=== PATIENT | male | born 1965 ===

== ENCOUNTER 2022-10-30 21:23 | Observation (INO) | payer BC, SELFPAY ==
--- NOTE | ~2022-10-30 | CT_ITS ---
EXAMINATION: CT abdomen pelvis w con DATE: 10/31/2022 01:29 INDICATION: Right abdominal pain. TECHNIQUE: Computed tomography (CT) of the abdomen and pelvis was performed with 100 mL Omnipaque 350 intravenous contrast. Automated exposure control and iterative reconstruction technique were employe d. The dose-length product was 239.56 mGy-cm. COMPARISON: CT abdomen and pelvis 02/11/2011 FINDINGS: The visualized portions of the lung bases demonstrate mild atelectasis in the right. No ple ural effusion. The heart size is normal. No pericardial effusion. The liver is normal. There are gall stones in the gallbladder, which is normal in size. Gallbladder wall thickening is noted. There is a 5 mm hypodense mass in the spleen, likely a cyst or granulomatous disease. The pancreas and adrenal g lands are normal. There are cysts in the kidneys measuring up to 11 mm on the right. Mild aortic athe rosclerosis is noted. There are no dilated loops of bowel. The appendix is not visualized. There are no pathologically enlarged lymph nodes. There is no free intraperitoneal fluid. There is an intramedu llary kaylynn in right femur. There is mild lumbar spondylosis. IMPRESSION: 1. Cholelithiasis. Gallbladder wall thickening may be secondary to acute or chronic cholecystitis. Reviewed, dictated and finalized at location E. IMPRESSION: 1. Cholelithiasis. Gallbladder wall thickening may be secondary to acute or chr onic cholecystitis.
[2022-10-30 21:39] VITALS: BP 177/104; PULSE 68; RESP 16; TEMP 36.3; O2SAT 100
--- NOTE | 2022-10-30 21:54 | ECG_ITS ---
Measurements Intervals [place] Rate: 56 P: 74 DC: 152 QRS: 55 QRSD: 73 T: 50 QT: 389 QTc: 377 Interpretive Statements SINUS BRADYCARDIA CONSIDER ANTERIOR INFARCT, AGE INDETERMINATE BASELINE ARTIFACT- I, AVL ABNORMAL ECG NO PREVIOUS ECG AVAILABLE FOR COMPARISON Electronically Signed On 10-31-2022 7:02:57 CDT by Hubert Gutierrez D.O.
[2022-10-30 21:55] LABS: Basophils Absolute Auto 0.1 K/mm3 (0.0-0.1); Eosinophils Absolute Auto 1.1 K/mm3 (0-0.3); Eosinophils Percent Auto 10.1 % (0-4.4); Hematocrit 51.1 % (42.0-52.0); Hemoglobin 17.3 g/dL (14.0-18.0); Immature Granulocyte Absolute 0.03 K/mm3 (0.00-0.031); Immature Granulocyte Percent A 0.3 % (0-0.5); Lymphocytes Absolute Auto 3.93 K/mm3 (0.9-3.2); Lymphocytes Percent Auto 35.9 % (18.3-44.2); Mean Corpuscular HGB Conc 33.9 g/dl (32-36); Mean Corpuscular Hemoglobin 31.6 pg (26-34); Mean Corpuscular Volume 93.4 fl (80-100); Monocytes Percent Auto 9.5 % (2.6-8.5); Neutrophils Absolute Auto 4.7 K/mm3 (1.3-6.7); Neutrophils Percent Auto 43.2 % (45.5-73.1); Platelet Count Result 287 k/mm3 (150-375); Red Blood Count 5.47 M/mm3 (4.6-6.20); Red Cell Distribution Width 13.3 % (11.5-14.5); White Blood Count 10.9 K/mm3 (4.5-10.0)
--- NOTE | 2022-10-30 21:56 | PC.NURSE ---
pt comes to intake desk c/o chest pain. EKG ordered and completed.
[2022-10-30 22:09] LABS: Alanine Aminotransferase 38 U/L (6-50); Albumin Level 4.8 g/dL (3.5-5.1); Alkaline Phosphatase 73 U/L (38-126); Anion Gap 7 mmol/L (8-16); Aspartate Amino Transferase 40 U/L (17-59); Bilirubin,Total 0.4 mg/dL (0.2-1.3); Blood Urea Nitrogen 11 mg/dL (9-20); Calcium 9.8 mg/dL (8.4-10.2); Carbon Dioxide 28 mmol/L (22-30); Chloride 102 mmol/L (98-107); Estimated CRCL calculation 69 ml/min; Estimated Glomerular Filt Rate > 60; Glucose 109 mg/dL (65-110); Lipase 207 U/L (23-300); Sodium 137 mmol/L (137-145)
[2022-10-31] VITALS (21 sets, daily range): BP systolic 106–139; BP diastolic 62–92; PULSE 53–73; RESP 8–20; TEMP 36.1–37.1; O2SAT 93–100; BMI 26.5
[2022-10-31 00:38] LABS: Appearance Urine Clear (Clear); Bilirubin Urine Negative (Negative); Blood Urine Negative (Negative); Color Urine Yellow (Yellow); Glucose Urine UA Negative (Negative); Ketones Urine Negative (Negative); Leukocyte Esterase Ur Negative LEU/UL (Negative); Nitrate Urine Negative (Negative); Protein Urine Negative (Negative); Specific Grav Ur 1.008 (1.001-1.035); Urobilinogen Urine 0.2 mg/dL (<2.0); pH Urine 5.5 (5.0-9.0)
[2022-10-31 00:58] LABS: Add Urine Microscopic? NO
--- NOTE | 2022-10-31 02:12 | ED.GENADULT ---
HPI - General Adult General Chief complaint: Abdominal Pain Stated complaint: right abd pain Time Seen by Provider: 10/31/22 00:08 History of Present Illness HPI narrative: This is a 57-year-old male with history of hepatitis C and liver cirrhosis presenting with right-sided abdominal pain. Patient says he has been having pain on and off for 6 weeks. Is a pressure in the right upper quadrant that is nonradiating 10 out 10 intensity and comes and goes. He has never experienced pain like this before the last 6 weeks there no exacerbating alleviating factors. He reports fevers, nausea and vomiting.. He chest pain/ shortness of breath urinary symptoms diarrhea or constipation Related Data Home Medications Medication Instructions Recorded Confirmed bisacodyl 5 mg tablet,delayed 5 mg PO ONCE 12/29/19 release oxycodone-acetaminophen 5 mg-325 1 tablet PO Q6H PRN 12/29/19 mg tablet polyethylene glycol 3350 17 gram 17 gm PO DAILY 12/29/19 oral powder packet Allergies Allergy/AdvReac Type Severity Reaction Status Date / Time No Known Allergies Allergy Unknown Verified 10/30/22 21:24 [facility] Past Medical History Medical History Asthma Cigarette nicotine dependence, uncomplicated Fracture of femur following insertion of orthopedic implant, joint prosthesis, or bone plate, right leg Sleep apnea, unspecified Viral hepatitis C without hepatic coma Surgical History Surgical History History of appendectomy S/P operation on nasal septum Social History Social History Years smoked: 40 Smoking status: Current every day smoker Exam Narrative: APPEARANCE: No apparent distress. Head: atraumatic. EYES: EOMI, NOSE: Atraumatic NECK: Trachea midline RESPIRATORY: No increased rate of breathing, CTAB CARDIOVASCULAR: RRR, ABDOMINAL: Tenderness to palpation in the right upper quadrant. No CVA tenderness MUSCULOSKELETAL: No obvious deformities NEURO: Alert. Moving 4/4 extremities SKIN:: Warm, dry. Normal color PSYCHIATRIC: Normal affect Course Vital Signs Vital signs: Vital Signs Temperature 97.4 F L 10/30/22 21:39 Pulse Rate 68 10/30/22 21:39 Respiratory Rate 16 10/30/22 21:39 Blood Pressure 177/104 H 07/11/23 21:39 Pulse Oximetry 100 10/30/22 21:39 Oxygen Delivery Room Air 10/30/22 21:39 Temperature 97.4 F L 10/30/22 21:39 Pulse Rate 70 10/31/22 04:28 Respiratory Rate 15 10/31/22 04:28 Blood Pressure 117/87 10/31/22 04:28 Pulse Oximetry 99 10/31/22 04:28 Oxygen Delivery Room Air 10/30/22 21:39 Medical Decision Making [facility] Narrative Medical decision making narrative: -Presentation: 57-year-old male presenting with right upper quadrant abdominal pain. 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 -External Chart Review: None -Hx from independent Sources: daughter bedside -Independent interpretation of studies: CBC within normal limits. Metabolic panel unremarkable without significant elevations in liver enzymes. Urine negative for infection. Independent EKG interpretation: Rhythm [sinus], Rate [56], [place] -[normal], SC -[normal], QRS [narrow], QTC [normal], T waves -[negative for concerning inversions], ST Segments - [Negative for concerning elevations] Final interpretations: sinus bradycardia CT abdomen pelvis showed gallbladder wall thickening that is consistent with acute versus chronic cholecystitis. Point of care right upper quadrant ultrasound showed gallbladder sludge with gallbladder wall thickening and pericholecystic fluid. Positive sonogr
[2022-10-31] MEDS: HYDROmorphone HCL INJ (*CRX) 1 MG/ML SYR 0.5 MG IV PUSH (03:50)
[2022-10-31] MEDS: ACETAMINOPHEN 500 MG TABLET 1000 MG PO (03:51)
[2022-10-31] MEDS: PIPERACILLN/TAZ 3.375GM/NS50ML 3.375 GM/50 ML BAG IVPB ×3 (04:05→19:13)
[2022-10-31] MEDS: SODIUM CHLORIDE 0.9% IV 2,000 ML 999 ML IV CONT (04:05)
[2022-10-31 04:41] LABS: Prothrombin Time 13.7 Seconds (11.1-14.7)
--- NOTE | 2022-10-31 05:40 | PC.NURSE ---
Pts daughter, Crys's number [phone].
--- NOTE | 2022-10-31 09:49 | ADMGEN ---
This patient, James Vasquez, was admitted to Medical Room 260-01 at 0745. Patient/family oriented to hospital policies and general routines including ID bracelet, bed and alarms, visiting hours, pain management, procedures, bathroom and other care routines, personal items, smoking policy, room service/diet, and visiting hours. Information on how to activate the Rapid Response Team has been discussed. Patient/Family are encouraged to report perceived risks to care and to ask questions if they do not understand what they are told or what they should do.
--- NOTE | 2022-10-31 10:31 | PM.IMHP ---
H&P: HPI History of Present Illness Date/Time: 10/31/22 10:31 Chief Complaint: This is a 57-year-old male with history of? hepatitis C and liver cirrhosis presenting with right-sided abdominal pain.? Patient says he has been having pain on and off for 6 weeks.? Is a pressure in the right upper quadrant that is nonradiating 10 out 10 intensity and comes and goes.? He has never experienced pain like this before the last 6 weeks there no exacerbating alleviating factors. ? He reports fevers, nausea and vomiting.. He chest pain/ shortness of breath urinary symptoms diarrhea or constipation PMFSH Past Medical History Medical History Asthma Cigarette nicotine dependence, uncomplicated Fracture of femur following insertion of orthopedic implant, joint prosthesis, or bone plate, right leg Sleep apnea, unspecified Viral hepatitis C without hepatic coma Surgical History Surgical History History of appendectomy S/P operation on nasal septum Social History Social History Smoking packs per day: 2 Smoking cigarettes per day: 40.0 Years smoked: 40 Smoking pack-years: 80.00 Smoking status: Current every day smoker Tobacco type: cigarettes Alcohol intake: current Drinks per week: 2 Substance use: current Substance use type: marijuana Lack of Transportation: No Lack of Food: Never True Current Housing: I Have Housing Concerned About Future Housing: No Difficulty Paying Gas/Electric Bills: No Difficulty Paying for Meds: No Currently Unemployed: No Education: Grade School Difficulty w/ Childcare or Family Care: No Spiritual care concerns: No Meds Home Medications and Allergies Allergies Allergy/AdvReac Type Severity Reaction Status Date / Time No Known Allergies Allergy Unknown Verified 10/31/22 10:04 Vital Signs Vital Signs - 24 hr 10/30/22 21:39 10/31/22 04:28 10/31/22 05:27 Temperature 97.4 F L Pulse Rate 68 70 64 Respiratory Rate 16 15 15 Blood Pressure 177/104 H 117/87 106/62 Pulse Oximetry 100 99 96 Oxygen Delivery Room Air 10/31/22 04:28 10/31/22 05:16 10/31/22 07:01 Temperature Pulse Rate 67 62 60 Respiratory Rate 14 18 20 Blood Pressure 117/87 106/62 Pulse Oximetry 97 98 Oxygen Delivery 10/31/22 07:17 10/31/22 07:35 10/31/22 07:50 Temperature 97.6 F 97.4 F L 97.6 F Pulse Rate 57 L 56 L Respiratory Rate 18 18 Blood Pressure 116/76 116/65 Pulse Oximetry 97 Oxygen Delivery Exam Narrative: General: alert and oriented Psych: appropriate mood nad affect Eyes: PERRLA Neck: Trachea midline, no new lesions Skin: no changes Lungs: CTA Cardiac: Normal S1,S2, no MGR ABD: soft, nd, nt, nbs Ext: no new lesions, no cce Vasc: Pulses intact H&P: Results Labs Labs: Short CBC 10/30/22 Range/Units 21:45 WBC 10.9 H (4.5-10.0) K/mm3 Hgb 17.3 (14.0-18.0) g/dL Hct 51.1 (42.0-52.0) % Plt Count 287 (150-375) k/mm3 BMP 10/30/22 21:45 Sodium 137 Potassium 5.0 Chloride 102 Carbon Dioxide 28 BUN 11 Creatinine 0.80 Glucose 109 Calcium 9.8 Liver Function 10/30/22 Range/Units 21:45 Total Bilirubin 0.4 (0.2-1.3) mg/dL AST 40 (17-59) U/L ALT 38 (6-50) U/L Alkaline Phosphatase 73 (38-126) U/L Albumin 4.8 (3.5-5.1) g/dL Urine 10/31/22 Range/Units 00:32 Urine Color Yellow (Yellow) Urine Appearance Clear (Clear) Urine pH 5.5 (5.0-9.0) Ur Specific [place] 1.008 (1.001-1.035) Urine Protein Negative (Negative) mg/dL Urine Glucose (UA) Negative (Negative) mg/dL Assessment and Plan Assessment and plan (1) Cholecystitis: Code(s): K81.9 - Cholecystitis, unspecified Status: Acute Assessment and Plan: surgical consult (2) Hepatic cirrhosis: Code(s):
[2022-10-31] MEDS: LACTATED RINGERS 1,000 ML 125 ML IV CONT (12:04)
--- NOTE | 2022-10-31 13:17 | PM.CNGS ---
Assessment and Plan Assessment and plan (1) Cholecystitis: Code(s): K81.9 - Cholecystitis, unspecified Status: Acute Assessment and Plan: Have reviewed the CT and discussed the findings with the patient. He has evidence of acute cholecystitis with an elevated white blood count and CT findings gallbladder wall thickening cholelithiasis. Has a history hepatitis C, but his platelet level, coags, and liver enzymes all appear within normal limits. He has been admitted for further treatment and is still having pain. I recommended proceeding with laparoscopic cholecystectomy, possible open. I discussed the procedure, risks, benefits, and alternatives. Questions were answered. (2) Hepatitis C: Code(s): B19.20 - Unspecified viral hepatitis C without hepatic coma Status: Acute History of Present Illness Consult details Consult date: 10/31/22 Reason for consult: other (cholecystitis) Requesting physician: Quinton Palm MD Narrative: This is a 57-year-old man who presented to the emergency department this morning with right upper quadrant abdominal pain that has been intermittent over the past 6 weeks. He has about 2 episodes per week that her lasting about 6-8 hours at a time. He does not recall any particular foods cause this. In the emergency department he was noted to slightly elevated blood count in CT showed evidence acute cholecystitis. Was then placed on antibiotics admitted to the hospital for further treatment. He does have a history of hepatitis C and was told he may have early stages of cirrhosis. 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 Review of Systems Review of Systems: All systems reviewed & are unremarkable except as noted in HPI and below Constitutional: Constitutional: Denies chills and Denies fever(s) Eyes: Eyes: Denies change in vision ENT: Denies hearing loss, Denies neck pain and Denies sore throat Cardiovascular: Cardiovascular: Denies chest pain and Denies dyspnea Respiratory: Respiratory: Denies cough, Denies dyspnea and Denies wheezing Gastrointestinal: Gastrointestinal: Reports as per HPI Genitourinary: Genitourinary: Denies hematuria and Denies dysuria Musculoskeletal: Musculoskeletal: Denies arthralgias, Denies joint swelling and Denies neck pain Allergic/Immunologic: Allergic/Immunologic: Denies wheezing PMFSH Past Medical History Medical History Asthma Cigarette nicotine dependence, uncomplicated Fracture of femur following insertion of orthopedic implant, joint prosthesis, or bone plate, right leg Sleep apnea, unspecified Viral hepatitis C without hepatic coma Surgical History Surgical History History of appendectomy S/P operation on nasal septum Social History Social History Smoking packs per day: 2 Smoking cigarettes per day: 40.0 Years smoked: 40 Smoking pack-years: 80.00 Smoking status: Current every day smoker Tobacco type: cigarettes Alcohol intake: current Drinks per week: 2 Substance use: current Substance use type: marijuana Lack of Transportation: No Lack of Food: Never True Current Housing: I Have Housing Concerned About Future Housing: No Difficulty Paying Gas/Electric Bills: No Difficulty Paying for Meds: No Currently Unemployed: No Education: Grade School Difficulty w/ Childcare or Family Care: No Spiritual care concerns: No Meds Home Medications and Allergies Allergies Allergy/AdvReac Type Severity Reaction Status Date / Time No Known Allergies Allergy Unknown Verified 10/31/22 10:04 Vital Signs Vital Signs - 24 hr 10/30/22 21:39 10/31/22 04:28 10/31/22 05:27 Temperature 36.3 C L Pulse Rate 68 70 64 Respiratory Rate 16 15 15 Blood Pressure 177/104 H 117/
--- NOTE | 2022-10-31 13:21 | WPDHPUPDATE1 ---
History and Physical Update Update Date/Time: 10/31/22 13:21 History and Physical has been reviewed, including an updated exam of the patient. There are NO changes in the patient's condition. Risks, benefits, and alternatives have been discussed and questions answered. Patient agrees to proceed with procedure.
--- NOTE | 2022-10-31 13:51 | WPDANESEPPF ---
Anes - Initial Pre Proc Eval Procedure: Operation Date: 10/31/22 15:00 Proposed Procedures p Laparoscopic Cholecystectomy - Clement Chiu DO Date/Time: 10/31/22 13:51 Surgeon: Taina Galvan MD Pre Op Diagnosis: cholecystitis Patient Data Age: 57 Gender: M Height: 1.57 m Weight: 65.9 kg Last Vital Signs Temp 36.4 C 10/31/22 07:50 Pulse 56 L 10/31/22 07:50 Resp 18 10/31/22 07:50 BP 116/65 10/31/22 07:50 Pulse Ox 93 10/31/22 11:13 O2 Del Method Room Air 10/31/22 11:13 Allergies Allergy/AdvReac Type Severity Reaction Status Date / Time No Known Allergies Allergy Unknown Verified 10/31/22 10:04 Laboratory Tests 10/30/22 10/31/22 10/31/22 21:45 00:32 04:23 WBC 10.9 H K/mm3 (4.5-10.0) RBC 5.47 M/mm3 (4.6-6.20) Hgb 17.3 g/dL (14.0-18.0) Hct 51.1 % (42.0-52.0) MCV 93.4 fl (80-100) MCH 31.6 pg (26-34) MCHC 33.9 g/dl (32-36) RDW 13.3 % (11.5-14.5) Plt Count 287 k/mm3 (150-375) MPV 10.0 fl (7.4-10.4) Immature Gran % (Auto) 0.3 % (0-0.5) Neut % (Auto) 43.2 L % (45.5-73.1) Lymph % (Auto) 35.9 % (18.3-44.2) [place] % (Auto) 9.5 H % (2.6-8.5) Eos % (Auto) 10.1 H % (0-4.4) Baso % (Auto) 1.0 % (0.2-1.2) Lymph # (Auto) 3.93 H K/mm3 (0.9-3.2) [place] # (Auto) 1.0 H K/mm3 (0.1-0.6) Eos # (Auto) 1.1 H K/mm3 (0-0.3) Baso # (Auto) 0.1 K/mm3 (0.0-0.1) Abs Immat Gran (auto) 0.03 K/mm3 (0.00-0.031) Absolute Neuts (auto) 4.7 K/mm3 (1.3-6.7) Absolute Nucleated RBC 0.0 K/mm3 (0.0-0.012) Nucleated RBC % 0.0 % (0.0-0.2) PT 13.7 Seconds (11.1-14.7) INR 1.0 APTT 34.0 SECONDS (22.3-36.8) Sodium 137 mmol/L (137-145) Potassium 5.0 mmol/L (3.4-5.0) Chloride 102 mmol/L (98-107) Carbon Dioxide 28 mmol/L (22-30) Anion Gap 7 L mmol/L (8-16) BUN 11 mg/dL (9-20) Creatinine 0.80 mg/dL (0.7-1.3) Estim Creat Clear Calc 69 ml/min Estimated GFR > 60 (59 - ) Glucose 109 mg/dL (65-110) Calcium 9.8 mg/dL (8.4-10.2) Total Bilirubin 0.4 mg/dL (0.2-1.3) AST 40 U/L (17-59) ALT 38 U/L (6-50) Alkaline Phosphatase 73 U/L (38-126) Total Protein 8.0 g/dL (6.3-8.2) Albumin 4.8 g/dL (3.5-5.1) Lipase 207 U/L (23-300) Urine Color Yellow (Yellow) Urine Appearance Clear (Clear) Urine pH 5.5 (5.0-9.0) Ur Specific [place] 1.008 (1.001-1.035) Urine Protein Negative mg/dL (Negative) Urine Glucose (UA) Negative mg/dL (Negative) Urine Ketones Negative mg/dL (Negative) Ur Blood (Man) Negative (Negative) Urine Nitrate Negative (Negative) Urine Bilirubin Negative (Negative) Urine Urobilinogen 0.2 mg/dL (<2.0) Leukocyte Esterase Rfl Negative ROBER/UL (Negative) ECG: Date of Service: 07/11/23 Procedure(s): CA 12 lead EKG Accession Number(s): [id number] cc: ~ ? Measurements Intervals? [place]? Rate: ? 56 ? P:? 74 [place]: ? 152? QRS:? 55 QRSD: ? 73 ? T:? 50 QT: ? 389? QTc:? 377? Interpretive Statements SINUS BRADYCARDIA CONSIDER ANTERIOR INFARCT, AGE INDETERMINATE BASELINE ARTIFACT- I, AVL ABNORMAL ECG NO PREVIOUS ECG AVAILABLE FOR COMPARISON Electronically Signed On 10-31-2022 7:02:5
[2022-10-31] MEDS: LACTATED RINGERS 1,000 ML 30 ML IV CONT ×2 (14:17→16:35)
[2022-10-31] MEDS: BUPIVACAINE/EPINEPHRINE 0.5% 50 ML VIAL 30 ML INFILTRATE (15:46)
--- NOTE | 2022-10-31 16:21 | W.PM.PROC2 ---
Procedure Note - Detailed Date of Procedure 10/31/22 Pre-op Diagnosis Acute calculous cholecystitis Post-op Diagnosis Same Procedure Performed Laparoscopic cholecystectomy Surgeon Clement Chiu, DO Anesthesia General and Local (0.5% bupivacaine) Indications This is a 57-year-old man who presented to the emergency department with right upper quadrant pain that has been intermittent over the past 6 weeks. It became more severe last night and was continuing throughout the night. He presented to the ED this morning and workup showed evidence of acute calculous cholecystitis. He was started on Zosyn and admitted for further treatment. Discussions were made with the patient about treatment options and decision was made to proceed with laparoscopic cholecystectomy, possible open. Findings Laparoscopic cholecystectomy was performed. The patient's gallbladder wall was edematous and indurated. There appeared to be a medium-sized gallstones lodged at the neck of the gallbladder. There was inflammation surrounding this area and then the cystic duct appeared to taper to normal size. No other intra-abdominal abnormalities were noted. The gallbladder was removed and sent to the lab for pathology. Description of Procedure Procedure as well as risks, benefits, and alternatives were discussed with patient. Written consent was obtained and placed in chart prior to procedure. The patient was brought back to surgical suite. Patient was placed in supine position on operating table. Time-out was done to confirm patient and procedure. Patient was then intubated by the anesthesia department. Abdomen was prepped and draped in sterile fashion using chlorhexidine prep. 0.5% bupivacaine with epinephrine was infiltrated at each site of incision. An 11 millimeter vertical incision was made at the superior portion of the umbilicus using a 15 blade scalpel. Blunt dissection was carried down to the linea alba. The linea alba was then incised using a 15 blade scalpel. The peritoneum was then bluntly entered. An 11 millimeter trocar was inserted and carbon dioxide insufflation was used to create a pneumoperitoneum. The camera was inserted and the abdomen was inspected. The patient was placed in reverse Trendelenberg position and rotated slightly to the left. A 5 millimeter incision was made in the epigastric region, and a 5 millimeter trocar was inserted under direct visualization. Two 5 millimeter incisions were made in the right upper quadrant, and two 5 millimeter trocars were inserted under direct visualization. The gallbladder was identified and grasped at the fundus and retracted superiorly. It was then grasped at the infundibulum retracted laterally. Careful dissection around the neck of the gallbladder was performed using blunt dissection with a [place] grasper and hook electrocautery. The cystic duct was identified, and a window was created behind it. The cystic artery was also identified and a window was created behind it. The critical view of safety was identified, visualizing the cystic duct running directly into the neck of the gallbladder, and the cystic artery running directly into the wall of the gallbladder. A 5 millimeter clip air twist operator was then used to place 2 clips proximally and 1 clip distally on both the cystic duct and cystic artery. They were then both transected using endoscopic scissors. Once safely away from the angela hepatitis, the gallbladder was dissected free from the liver bed using hook electrocautery. Hemostasis was achieved along the way. The gallbladder was removed completely and then removed through the umbilical port. The liver bed was then inspected. Hemostasis appeared adequate, and our clips appeared secure. The area was gently irrigated with sterile saline. No other abnormalities were seen. The patient was flattened out in bed, and 1 final inspection was made around the abdominal cavity. The ports were then removed under direc
[2022-10-31] MEDS: HYDROmorphone HCL INJ (*CRX) 1 MG/ML SYR 0.25 MG IV PUSH ×2 (17:39→17:44)
[2022-10-31] MEDS: LACTATED RINGERS 1,000 ML 100 ML IV CONT (20:00)
[2022-11-01] MEDS: PIPERACILLN/TAZ 3.375GM/NS50ML 3.375 GM/50 ML BAG IVPB ×2 (00:27→05:32)
[2022-11-01 03:51] VITALS: BP 127/70; PULSE 18; RESP 18; TEMP 36.6; O2SAT 96
[2022-11-01 05:42] LABS: Basophils Absolute Auto 0.1 K/mm3 (0.0-0.1); Basophils Percent Auto 0.4 % (0.2-1.2); Eosinophils Percent Auto 0.3 % (0-4.4); Hemoglobin 14.9 g/dL (14.0-18.0); Immature Granulocyte Absolute 0.07 K/mm3 (0.00-0.031); Immature Granulocyte Percent A 0.6 % (0-0.5); Lymphocytes Absolute Auto 2.01 K/mm3 (0.9-3.2); Lymphocytes Percent Auto 15.8 % (18.3-44.2); Mean Corpuscular HGB Conc 32.4 g/dl (32-36); Mean Corpuscular Hemoglobin 30.9 pg (26-34); Mean Corpuscular Volume 95.4 fl (80-100); Mean Platelet Volume 10.4 fl (7.4-10.4); Monocytes Absolute Auto 1.2 K/mm3 (0.1-0.6); Monocytes Percent Auto 9.3 % (2.6-8.5); Neutrophils Absolute Auto 9.3 K/mm3 (1.3-6.7); Neutrophils Percent Auto 73.6 % (45.5-73.1); Platelet Count Result 253 k/mm3 (150-375); Red Blood Count 4.82 M/mm3 (4.6-6.20); Red Cell Distribution Width 13.3 % (11.5-14.5); White Blood Count 12.7 K/mm3 (4.5-10.0)
[2022-11-01 05:52] LABS: Alanine Aminotransferase 31 U/L (6-50); Albumin Level 3.5 g/dL (3.5-5.1); Alkaline Phosphatase 59 U/L (38-126); Anion Gap 1 mmol/L (8-16); Aspartate Amino Transferase 34 U/L (17-59); Bilirubin,Total 0.5 mg/dL (0.2-1.3); Blood Urea Nitrogen 8 mg/dL (9-20); Calcium 8.5 mg/dL (8.4-10.2); Carbon Dioxide 28 mmol/L (22-30); Chloride 106 mmol/L (98-107); Estimated CRCL calculation 78 ml/min; Estimated Glomerular Filt Rate > 60; Glucose 109 mg/dL (65-110); Potassium 4.2 mmol/L (3.4-5.0); Sodium 135 mmol/L (137-145)
--- NOTE | 2022-11-01 08:31 | PM.PNGS ---
Progress Note: A&P Assessment and Plan (1) Cholecystitis: Code(s): K81.9 - Cholecystitis, unspecified Status: Acute Assessment and Plan: OK to discharge from surgical standpoint. No antibiotics needed. Follow up in 2 weeks. (2) Hepatitis C: Code(s): B19.20 - Unspecified viral hepatitis C without hepatic coma Status: Acute Subjective Subjective Date/Time Seen: 11/01/22 08:31 Interval history: Doing well POD1. Pain controlled. tolerating deit. Exam GI: Inspection: incision (mild bruising) GI Palp: Yes Soft to palpation, Yes Tenderness to palpation present (GI) (incisional) and No Guarding due to palpation present (GI) Objective Data Vital Signs Vital Signs: Vital Signs - 24 hr 10/31/22 11:13 10/31/22 10:00 10/31/22 14:18 Temperature 37.1 C Pulse Rate 53 L Respiratory Rate 16 Blood Pressure 131/81 Pulse Oximetry 93 99 Oxygen Delivery Room Air Room Air Room Air Oxygen Flow Rate 10/31/22 16:35 10/31/22 16:50 10/31/22 17:05 Temperature 36.4 C Pulse Rate 61 59 L 58 L Respiratory Rate 8 L 15 14 Blood Pressure 125/76 121/77 129/78 Pulse Oximetry 100 100 100 Oxygen Delivery Simple Face Mask Simple Face Mask Simple Face Mask Oxygen Flow Rate 6 6 6 10/31/22 17:20 10/31/22 17:25 10/31/22 17:35 Temperature Pulse Rate 64 59 L 73 Respiratory Rate 15 20 15 Blood Pressure 131/83 121/92 H Pulse Oximetry 100 100 99 Oxygen Delivery Simple Face Mask Simple Face Mask Room Air Oxygen Flow Rate 6 6 10/31/22 17:50 10/31/22 18:05 10/31/22 18:25 Temperature 36.1 C L Pulse Rate 60 53 L 54 L Respiratory Rate 16 13 16 Blood Pressure 132/82 137/92 H 139/83 Pulse Oximetry 98 97 97 Oxygen Delivery Room Air Room Air Oxygen Flow Rate 10/31/22 18:40 10/31/22 19:51 10/31/22 20:00 Temperature 36.2 C L 36.1 C L Pulse Rate 53 L 57 L Respiratory Rate 18 18 Blood Pressure 130/77 117/75 Pulse Oximetry 95 98 Oxygen Delivery Room Air Oxygen Flow Rate 10/31/22 23:51 11/01/22 03:51 Temperature 36.3 C L 36.6 C Pulse Rate 58 L 18 L Respiratory Rate 18 18 Blood Pressure 120/72 127/70 Pulse Oximetry 97 96 Oxygen Delivery Oxygen Flow Rate Intake/Output Intake/Output: Intake & Output 10/29/22 10/30/22 10/31/22 11/01/22 23:59 23:59 23:59 23:59 Intake Total 2900 100 Output Total 300 Balance 2600 100 Meds/Results Medications: Active Medications Generic Name Dose Route Start Last Admin Trade Name Freq PRN Reason Stop Dose Admin Hydrocodone Bitart/Acetaminophen 1 tab 10/31/22 18:06 Hydrocodone/Acetaminophen (*Crx) 5-325 Mg Tablet PO Q4H PRN Pain Rated 4-6 Hydrocodone Bitart/Acetaminophen 1 tab 10/31/22 18:06 Hydrocodone/Acetaminophen (*Crx) 7.5-325 Mg Tablet PO Q4H PRN Pain Rated 7-10 Piperacillin/Tazobactam/Dextrose 3.375 gm in 50 mls @ 100 mls/hr 10/31/22 11:00 11/01/22 06:02 Zosyn 3.375 Gm/Ns 50 Ml IVPB Infused Q6HR B[place] Infusion Ibuprofen 600 mg 10/31/22 18:06 Ibuprofen 600 Mg Tablet PO Q6H PRN Pain Rated 1-3 Morphine Sulfate 2 mg 10/31/22 18:06 Morphine Sulfate (*Crx) 2 Mg/Ml Inj IV PUSH Q2H PRN Pain Rated 4-6 Morphine Sulfate 4 mg 10/31/22 18:06 Morphine Sulfate (*Crx) 4 Mg/Ml Inj IV PUSH Q2H PRN Pain Rated 7-10 Ondansetron HCl 4 mg 10/31/22 18:06 Ondansetron Inj 4 Mg/2 Ml Vial IV PUSH Q4H PRN Nausea And Vomiting Radiology Results: ITS Impressions Abdomen/Pelvis CT 10/31/22 03:12 IMPRESSION: 1. Cholelithiasis. Gallbladder wall thickening may be secondary to acute or chronic cholecystitis. Labs Labs: Laboratory Results - last 24 hr 11/01/22 05:06 WBC 12.7 H RBC 4.82 Hgb 14.9 Hct 46.0 MCV 95.4 MCH 30.9 MCHC 32.4 RDW 13.3 Plt Count 253 MPV 10.4 Immature Gran % (Auto) 0.6 H Neut % (Auto) 73.6 H Lymph % (Auto) 15.8 L [place] % (Auto) 9.3 H Eos % (Auto) 0.
[2022-11-01 09:32] VITALS: BP 141/77; PULSE 63; RESP 20; TEMP 36.4; O2SAT 99
--- NOTE | 2022-11-01 10:53 | PM.DS ---
DS: Admitting Diagnosis Discharge Date November 01, 2022 Admitting Diagnosis Cholecystitis DS: Discharge Diagnosis Discharge Diagnosis (1) Cholecystitis: Code(s): K81.9 - Cholecystitis, unspecified Status: Acute Assessment and Plan: surgical consult (2) Hepatic cirrhosis: Code(s): K74.60 - Unspecified cirrhosis of liver Status: Acute (3) Hepatitis C: Code(s): B19.20 - Unspecified viral hepatitis C without hepatic coma Status: Acute DS: Summary Hospital Course Hospital Course: Admitted for cholecystitis. Status post cholecystectomy. Doing well he can be discharged. Follow with surgery as needed Time Spent with Patient Time attestation: Total time spent providing and/or coordinating discharge services: Exam Narrative: General: alert and oriented Psych: appropriate mood nad affect Eyes: PERRLA Neck: Trachea midline, no new lesions Skin: no changes Lungs: CTA Cardiac: Normal S1,S2, no MGR ABD: soft, nd, nt, nbs Ext: no new lesions, no cce Vasc: Pulses intact DS: Data Data Completed and Pending Pending studies at discharge: Pending at discharge 10/31/22 16:06 Surgical [PTH] Routine Labs on day of discharge: Labs from last 24 hours 11/01/22 05:06 WBC 12.7 H RBC 4.82 Hgb 14.9 Hct 46.0 MCV 95.4 MCH 30.9 MCHC 32.4 RDW 13.3 Plt Count 253 MPV 10.4 Immature Gran % (Auto) 0.6 H Neut % (Auto) 73.6 H Lymph % (Auto) 15.8 L Wilson % (Auto) 9.3 H Eos % (Auto) 0.3 Baso % (Auto) 0.4 Lymph # (Auto) 2.01 Wilson # (Auto) 1.2 H Eos # (Auto) 0.0 Baso # (Auto) 0.1 Abs Immat Gran (auto) 0.07 H Absolute Neuts (auto) 9.3 H Absolute Nucleated RBC 0.0 Nucleated RBC % 0.0 Sodium 135 L Potassium 4.2 Chloride 106 Carbon Dioxide 28 Anion Gap 1 L BUN 8 L Creatinine 0.70 Estim Creat Clear Calc 78 Estimated GFR > 60 Glucose 109 Calcium 8.5 Total Bilirubin 0.5 AST 34 ALT 31 Alkaline Phosphatase 59 Total Protein 6.0 L Albumin 3.5 Discharge Plan Discharge Attending physician on discharge: Nahum Merrill Consulting providers: Kadeem Young Discharging Clinician: Nahum Merrill. Patient Disposition: Home, Self-Care Activity: other - see discharge instructions Diet: as tolerated and other - see discharge instructions Wound Care Instructions: other - see discharge instructions Discharge Instructions: DISCHARGE INSTRUCTION SHEET FOR HERNIA, GALLBLADDER AND APPENDIX SURGERIES DR. ECHEVERRIA PATIENT TO TAKE HOME 1. May shower, no soaking in bath x 2weeks. 2. Call office for: Wound increasingly painful or bleeding Vomiting Fever of greater than 101 degrees 3. If no bowel movement for three days, take 1 oz. (30 ml) Milk of Magnesia or MiraLax 17g 1 to 2 times daily. 4. No heavy lifting > 10-15 pounds x weeks for hernia repairs and 2 weeks for laparoscopic cholecystectomy or appendectomy. 5. No driving for 3 days or while taking narcotic pain medications. 6. Ice to surgical site for 48 hours (30 min on, then 30 min off). 7. Up walking 10-30 minutes three times per day. 8. Resume previous home medications. 9. Follow-up 10-14 days in office for wound check or as previously scheduled. ([phone]) 10. Oral pain medications prescription to be sent to pharmacy. Take Tylenol 500mg every 6 hours and Ibuprofen 600mg every 6 hours for the first 2 days, then as needed. 11. NUTRITION: Start out by drinking fluids and increase your diet as tolerated. If you experience nausea, try dry toast, crackers, and 7-UP. If nausea or vomiting persists, contact your surgeon?s office. 12. Gallbladders-Low Fat Diet for 2 weeks (send care note of low fat diet) 13. Inguinal Hernias-wear scrotal support for 48 hours 14. Abdominal Hernias-if sent home with abdominal binder, wear for the first 2 weeks (may remove to shower or at
== END 2022-11-01 11:40 | disposition home or self-care (01) ==
LOC: ANHED 10-31 03:45 → ANH2MED 10-31 10:44
PROVIDERS: Surgery; Admitting Provider Chiropractor; Emergency Provider Emergency Medicine; PCP Internal Medicine; Visit Provider Chiropractor
PROC: 0FT44ZZ Resection of Gallbladder, Percutaneous Endoscopic Approach (ICD-10-PCS; CPT 47562; principal; 2022-10-31 15:00)
DX: K80.00 Calculus of gallbladder with acute cholecystitis without obstruction (principal); K74.60 Unspecified cirrhosis of liver; B19.20 Unspecified viral hepatitis C without hepatic coma; R94.31 Abnormal electrocardiogram [ECG] [EKG]; R07.9 Chest pain, unspecified; J45.909 Unspecified asthma, uncomplicated; G47.30 Sleep apnea, unspecified; F17.210 Nicotine dependence, cigarettes, uncomplicated; F10.90 Alcohol use, unspecified, uncomplicated; F12.90 Cannabis use, unspecified, uncomplicated; Z86.19 Personal history of other infectious and parasitic diseases; Z79.891 Long term (current) use of opiate analgesic; Z79.899 Other long term (current) drug therapy
CPT/HCPCS: 47562; 36415; 74177; 80053; 81003; 83690; 85025; 85610; 85730; 88304; 93005; 96361; 96365; 96366; 96375; 96376; 99285; A9270; G0378; G0379; J1100; J1170; J2250; J2405; J2543; J2704; J3010; J7030; J7120; Q9967

== ENCOUNTER 2022-12-10 09:22 | Emergency (ER) | payer BC, SELFPAY ==
--- NOTE | ~2022-12-10 | CT_ITS ---
EXAMINATION: CT cervical spine wo con DATE: 12/10/2022 12:35 INDICATION: Neck pain radiating down the left arm. TECHNIQUE: Computed tomography (CT) of the cervical spine was performed without intravenous contrast. Automated exposure control and iterative reconstruction technique were employed. The dose-length pro duct was 203.12 mGy-cm. COMPARISON: Cervical spine radiographs 02/20/2018 FINDINGS: There is 4 degrees levocurvature of cervical spine. There is kyphosis of cervical spine. Ve rtebral body heights are normal. There is moderately decreased disc height at C5-C6 and mildly decrea sed disc height at C6-C7. The following disc levels are specifically discussed: C2-C3: There is no uncovertebral joint osteoarthritis. There is mild bilateral facet joint osteoarthr itis. There is no neural foraminal stenosis. There is no central canal stenosis. C3-C4: There is mild bilateral uncovertebral joint osteoarthritis. There is mild right facet joint os teoarthritis. There is no neural foraminal stenosis. There is no central canal stenosis. C4-C5: There is no uncovertebral joint osteoarthritis. There is mild bilateral facet joint osteoarthr itis. There is no neural foraminal stenosis. There is no central canal stenosis. C5-C6: There is severe bilateral uncovertebral joint osteoarthritis. There is mild bilateral facet hazel int osteoarthritis. There is mild bilateral neural foraminal stenosis. There is mild central canal st enosis. C6-C7: There is severe bilateral uncovertebral joint osteoarthritis. There is mild bilateral facet hazel int osteoarthritis. There is mild bilateral neural foraminal stenosis. There is mild central canal st enosis. C7-T1: There is no uncovertebral joint osteoarthritis. There is mild bilateral facet joint osteoarthr itis. There is no neural foraminal stenosis. There is no central canal stenosis. IMPRESSION: 1. Moderate cervical spondylosis. Reviewed, dictated and finalized at location A.
--- NOTE | 2022-12-10 09:33 | ECG_ITS ---
Measurements Intervals [place] Rate: 72 P: 74 TX: 173 QRS: 21 QRSD: 70 T: 67 QT: 350 QTc: 383 Interpretive Statements SINUS RHYTHM NORMAL ELECTROCARDIOGRAM COMPARED TO ECG 10/30/2022 21:57:23 NO DIFFERENCE Electronically Signed On 12-10-2022 12:07:37 CDT by Nahum Mcpherson M.D.
[2022-12-10 09:54] VITALS: BP 125/89; PULSE 77; RESP 18; TEMP 36.4; O2SAT 99
[2022-12-10] MEDS: KETOROLAC 30 MG/ML VIAL (*BKC) IV PUSH (12:17)
[2022-12-10] MEDS: diazePAM INJ (*CRX) 10 MG/2 ML SYRINGE 5 MG IV PUSH (13:19)
--- NOTE | 2022-12-10 14:21 | ED.GENADULT ---
HPI - General Adult General Chief complaint: Neck Pain/Injury Stated complaint: neck pain Time Seen by Provider: 12/10/22 11:11 History of Present Illness HPI narrative: Patient is a 57-year-old male who presents ER with 3 weeks of left-sided neck pain. Reports he strained his neck at the time and felt a pop. He has had increased pain and it hurts to turn his head. Additionally when he turns his head he will feel pain or numbness going down his left arm. He works as a [employer]. He has no fevers or chills or sweats. He has not been taking any oral pain medication at home. He does not have a PCP to follow-up with. Related Data Allergies Allergy/AdvReac Type Severity Reaction Status Date / Time No Known Allergies Allergy Unknown Verified 10/31/22 10:04 Review of Systems Review of Systems: All systems reviewed & are unremarkable except as noted in HPI and below Constitutional: Constitutional: Denies chills and Denies fever(s) Musculoskeletal: Musculoskeletal: Denies back pain, Denies arthralgias and Denies joint swelling Comments: Neck pain Integumentary/Breasts: Skin/Breast: Reports system reviewed and no additional complaints, except as docu Neurologic: Denies syncope, Denies headache(s) and Denies focal weakness Comments: Pain and numbness that radiates down the left arm intermittently PMFSH Past Medical History Medical History (Updated 12/10/22 @ 14:24 by Zoran Rivero MD) Asthma Cholecystitis Cigarette nicotine dependence, uncomplicated Fracture of femur following insertion of orthopedic implant, joint prosthesis, or bone plate, right leg Hepatic cirrhosis Hepatitis C Sleep apnea, unspecified Viral hepatitis C without hepatic coma Surgical History Surgical History History of appendectomy S/P operation on nasal septum Social History Social History Smoking packs per day: 2 Smoking cigarettes per day: 40.0 Years smoked: 40 Smoking pack-years: 80.00 Smoking status: Current every day smoker Tobacco type: cigarettes Alcohol intake: current Drinks per week: 2 Substance use: current Substance use type: marijuana Lack of Transportation: No Lack of Food: Never True Current Housing: I Have Housing Concerned About Future Housing: No Difficulty Paying Gas/Electric Bills: No Difficulty Paying for Meds: No Currently Unemployed: No Education: Grade School Difficulty w/ Childcare or Family Care: No Spiritual care concerns: No Exam Narrative: GENERAL: Well-appearing, well-nourished, and in no acute distress. HEAD: Normocephalic, atraumatic. ENT: Mucous membranes moist. NECK: Supple. No reproducible midline tenderness of the cervical spine. There is left paraspinal muscle tenderness without spasm. Increased pain with turning head to the left. CHEST: Clear to auscultation. No respiratory distress. HEART: Regular rate and rhythm. Normal peripheral pulses EXTREMITIES: Normal range of motion. No edema. SKIN: Warm, dry, no rash. NEURO: Alert and oriented x3. PSYCH: Normal mood and affect. Course Course Emergency Course: Patient with improved pain with Toradol and Valium. Discussed the arthritis and cervical radiculopathy and need for follow-up and treatment. Vital Signs Vital signs: Vital Signs Temperature 97.6 F 12/10/22 09:54 Pulse Rate 77 12/10/22 09:54 Respiratory Rate 18 12/10/22 09:54 Blood Pressure 125/89 12/10/22 09:54 Pulse Oximetry 99 12/10/22 09:54 Oxygen Delivery Room Air 12/10/22 09:54 Temperature 97.6 F 12/10/22 09:54 Pulse Rate 89 12/10/22 14:30 Respiratory Rate 16 12/10/22 14:30 Blood Pressure 144/86 H 12/10/22 14:30 Pulse Oximetry 99 12/10/22 14:30 Oxygen Delivery Room Air 12/10/22 09:54 Medical Decision Making Vital Signs Vital Signs: Vital Signs Tempera
[2022-12-10 14:30] VITALS: BP 144/86; PULSE 89; RESP 16; O2SAT 99
== END 2022-12-10 14:30 | disposition home or self-care (01) ==
PROVIDERS: Emergency Provider Emergency Medicine; PCP Internal Medicine
DX: M47.22 Other spondylosis with radiculopathy, cervical region (principal); J45.909 Unspecified asthma, uncomplicated; K74.60 Unspecified cirrhosis of liver; G47.30 Sleep apnea, unspecified; B19.20 Unspecified viral hepatitis C without hepatic coma; F17.210 Nicotine dependence, cigarettes, uncomplicated
CPT/HCPCS: 72125; 93005; 96374; 96375; 99284; J1885; J3360

== ENCOUNTER 2022-12-16 10:20 | Emergency (ER) | payer BC, SELFPAY ==
[2022-12-16 10:20] VITALS: BP 135/89; PULSE 71; RESP 18; TEMP 36.1; O2SAT 99
[2022-12-16] MEDS: SODIUM CHLORIDE 0.9% IV 1,000 ML 999 ML IV CONT (10:52)
[2022-12-16] MEDS: diazePAM INJ (*CRX) 10 MG/2 ML SYRINGE 5 MG IV PUSH (10:53)
[2022-12-16] MEDS: KETOROLAC 30 MG/ML VIAL (*BKC) IV PUSH (10:53)
--- NOTE | 2022-12-16 10:53 | ED.GENADULT ---
HPI - General Adult General Chief complaint: Neck Pain/Injury Stated complaint: neck pain Time Seen by Provider: 12/16/22 10:27 History of Present Illness HPI narrative: Patient is a 57-year-old male who presents ER with left-sided neck pain. He was seen last week for similar symptoms. He had been taking a Medrol Dosepak as well as cyclobenzaprine and [place]. Reports he had significant improvement and only had 3/10 pain while taking that medication. Since running out the pain has returned and is intense. He is attempting to follow-up with a PCP. No new fevers or chills or sweats. No new injury. He is stayed home from work. Related Data Allergies Allergy/AdvReac Type Severity Reaction Status Date / Time No Known Allergies Allergy Unknown Verified 10/31/22 10:04 Review of Systems Review of Systems: All systems reviewed & are unremarkable except as noted in HPI and below Constitutional: Constitutional: Denies chills, Denies fatigue and Denies fever(s) ENT: Denies nasal congestion and Denies sore throat Musculoskeletal: Musculoskeletal: Denies arthralgias, Denies joint swelling and Reports muscle cramps Comments: Neck pain Neurologic: Denies headache(s), Denies focal weakness and Denies numbness Comments: Getting pains PMFSH Past Medical History Medical History (Updated 12/16/22 @ 12:35 by Zoran Rivero MD) Asthma Cholecystitis Cigarette nicotine dependence, uncomplicated Fracture of femur following insertion of orthopedic implant, joint prosthesis, or bone plate, right leg Hepatic cirrhosis Hepatitis C Sleep apnea, unspecified Viral hepatitis C without hepatic coma Surgical History Surgical History History of appendectomy S/P operation on nasal septum Social History Social History Smoking packs per day: 2 Smoking cigarettes per day: 40.0 Years smoked: 40 Smoking pack-years: 80.00 Smoking status: Current every day smoker Tobacco type: cigarettes Alcohol intake: current Drinks per week: 2 Substance use: current Substance use type: marijuana Lack of Transportation: No Lack of Food: Never True Current Housing: I Have Housing Concerned About Future Housing: No Difficulty Paying Gas/Electric Bills: No Difficulty Paying for Meds: No Currently Unemployed: No Education: Grade School Difficulty w/ Childcare or Family Care: No Spiritual care concerns: No Exam Narrative: GENERAL: Uncomfortable-appearing, well-nourished, and in no acute distress. HEAD: Normocephalic, atraumatic. ENT: Mucous membranes moist. NECK: Supple. Tender palpation along the left paraspinal musculature down near C6 at the trapezius musculature. Limited rotational motion of the neck due to pain. CHEST: Clear to auscultation. No respiratory distress. HEART: Regular rate and rhythm. Normal peripheral pulses. EXTREMITIES: Normal range of motion. No edema. SKIN: Warm, dry, no rash. NEURO: Alert and oriented x3. PSYCH: Normal mood and affect. Course Course Emergency Course: After medication patient is now performing rotational movements of his neck without issue. Pain improved. Discussed with patient about her need for follow-up and likely need for outpatient MRI. Vital Signs Vital signs: Vital Signs Temperature 97.0 F L 12/16/22 10:20 Pulse Rate 71 12/16/22 10:20 Respiratory Rate 18 12/16/22 10:20 Blood Pressure 135/89 12/16/22 10:20 Pulse Oximetry 99 12/16/22 10:20 Oxygen Delivery Room Air 12/16/22 10:20 Temperature 97.0 F L 12/16/22 10:20 Pulse Rate 70 12/16/22 13:08 Respiratory Rate 18 12/16/22 13:08 Blood Pressure 130/86 12/16/22 13:08 Pulse Oximetry 99 12/16/22 13:08 Oxygen Delivery Room Air 12/16/22 10:20 Medical Decision Making [facility] Narrative Medical decision making narrative: -Presentation: 57-y
[2022-12-16 13:08] VITALS: BP 130/86; PULSE 70; RESP 18; O2SAT 99
== END 2022-12-16 13:10 | disposition home or self-care (01) ==
PROVIDERS: Emergency Provider Emergency Medicine; PCP Internal Medicine
DX: M54.12 Radiculopathy, cervical region (principal); F17.210 Nicotine dependence, cigarettes, uncomplicated
CPT/HCPCS: 96374; 96375; 99284; J1885; J3360; J7030